=== PATIENT | male | born 1980 | race Caucasian/White ===

== ENCOUNTER → 2023-01-29 | Outpatient (CLI) | payer OTHER ==
--- NOTE | 2023-01-29 11:02 | XR ---
EXAMINATION TYPE: XR lumbosacral spine min 4V DATE OF EXAM: 01/29/2023 CLINICAL HISTORY: pain COMPARISON: NONE TECHNIQUE: Frontal, lateral, and oblique images of the lumbar spine are obtained. FINDINGS: There are 5 lumbar type vertebral bodies identified. The lumbar spine shows satisfactory alignment without evidence of acute fracture or dislocation. Vertebral body heights are within normal limits. Severe degenerative disc disease at L4-5 and L5-S1. Grade 1 anterolisthesis of 7 mm L4 and L 5 and grade 1 retrolisthesis of L5 on S1 measuring 5.5 mm. Severe facet joint arthropathy. Spondyloly sis at L4-5 is difficult to exclude. The overlying soft tissue appears unremarkable. IMPRESSION: Advanced degenerative changes as discussed. ICD 10 NO FRACTURE, INITIAL EVALUATION
== END | disposition home or self-care (01) ==
LOC: RADXRMAIN 10:05
PROVIDERS: ATTEND Physical Medicine & Rehabilitation
DX: M51.36 Other intervertebral disc degeneration, lumbar region (principal); M47.817 Spondylosis without myelopathy or radiculopathy, lumbosacral region; M43.16 Spondylolisthesis, lumbar region
CPT/HCPCS: 72110